=== PATIENT | female | born 1990 | race African-American/Black ===

== ENCOUNTER 2019-11-17 17:47 | Emergency (ER) | payer OTHER ==
[~2019-11-17] VITALS: Ht 160 cm; Wt 109.7 kg
[~2019-11-17 17:47] MED LIST: FERR-43 PO; PREN-88 PO
[2019-11-17 17:52] VITALS: BP 128/95
== END 2019-11-17 18:48 | disposition home or self-care (01) ==
LOC: ER 17:47
DX: J32.9 Chronic sinusitis, unspecified (principal); Z79.899 Other long term (current) drug therapy; Z90.49 Acquired absence of other specified parts of digestive tract
CPT/HCPCS: 99283